=== PATIENT | female | born 1975 | race Caucasian/White ===

== ENCOUNTER 2019-04-11 10:27 | Emergency (ER) | payer OTHER ==
[~2019-04-11] VITALS: Ht 162.6 cm; Wt 78.0 kg
[2019-04-11 10:42] VITALS: Ht 162.6 cm; Wt 78.0 kg
[2019-04-11 13:12] VITALS: BP 131/74
== END 2019-04-11 13:12 | disposition home or self-care (01) ==
LOC: ED 10:27
DX: S39.92XA Unspecified injury of lower back, initial encounter (principal); I10 Essential (primary) hypertension; W18.39XA Other fall on same level, initial encounter; Y93.89 Activity, other specified; Y92.89 Other specified places as the place of occurrence of the external cause; Y99.8 Other external cause status
CPT/HCPCS: J1885; J3010